=== PATIENT | male | born 1985 | race Caucasian/White ===

== ENCOUNTER 2022-08-02 13:49 | Outpatient (CLI) | payer BC, OTHER ==
[~2022-08-02 13:49] MED LIST: AMOX500C2 PO; HYDR1TAB PO; PRD20T PO
== END 2022-08-02 14:40 ==
LOC: SLEEP 13:49
PROVIDERS: ATTEND Nurse Practitioner Family
DX: G47.10 Hypersomnia, unspecified (principal); G47.36 Sleep related hypoventilation in conditions classified elsewhere; I10 Essential (primary) hypertension; J30.9 Allergic rhinitis, unspecified
CPT/HCPCS: G0399